=== PATIENT | male | born 1980 | race Caucasian/White ===

== ENCOUNTER 2017-10-19 10:35 | Inpatient (IN) | payer MEDICAID ==
[~2017-10-19] VITALS: Ht 167.6 cm; Wt 76.8 kg
[2017-10-19 11:24] LABS: Hematocrit 44.5 % (41.0-53.0); Hemoglobin 14.8 g/dL (13.5-17.5); Mean Corpuscular Hemoglobin 29.1 pg (28.0-32.0); Mean Corpuscular Hgb Conc. 33.1 g/dL (32.0-36.0); Mean Corpuscular Volume 87.9 fL (80.0-100.0); Platelet Count (auto) 438 10^3/uL (140-450); Red Blood Cells 5.07 10^6/uL (4.5-5.90); Red Cell Distribution Width 13.9 % (11.8-14.3); White Blood Cell 23.4 10^3/uL (4.4-10.8)
[2017-10-19 11:35] LABS: Basophils % (manual) 0 (0.0-2.0); Eosinophils % (manual) 0 (0-7); Metamyelocytes % 0; Myelocytes % 0; Promyelocytes % 0; Reactive Lymphocytes 0
[2017-10-19 11:36] LABS: Blast Cells 0
[2017-10-19 11:46] LABS: Albumin 4.3 g/dL (3.4-5.0); BUN/Creatinine Ratio 17.6; Bilirubin, Total 0.8 mg/dL (0.2-1.0); Calcium 9.6 mg/dL (8.5-10.1)
[2017-10-19 12:41] LABS: Band Neutrophils % (manual) 8; Lymphocytes % (manual) 9 (10.0-50.0); Monocytes % (manual) 1 (0-12)
[2017-10-19] MEDS ORDERED: SODIUM CHLORIDE 0.9% 1,000 ML IV ONE ×2 (13:47)
[2017-10-19] MEDS ORDERED: PROMETHAZINE HCL 25 MG/ML 1ML IV ONE (14:00)
[2017-10-19] MEDS ORDERED: PIPERACILLIN-TAZOB 3.375GM 50 ML IV ONE (15:30)
[2017-10-19 15:57] LABS: Urine Bacteria NONE SEEN /hpf (None Seen); Urine Blood Negative /uL (Negative); Urine Mucus FEW (None Seen); Urine Specific Gravity 1.025 (1.001-1.035); Urine WBC 1 /hpf (0 - 3)
[2017-10-19] MEDS ORDERED: IOHEXOL 300 MG/ML 100ML BOTTLE IJ ONE (16:02)
[2017-10-19] MEDS ORDERED: DEXTROSE (50%) 50ML SYRG IV PRN (18:45)
[2017-10-19] MEDS ORDERED: VANCOMYCIN PER PHARMACY 0 MG IV SCH (18:45)
[2017-10-19] MEDS: SODIUM CHLORIDE 0.9% 1,000 ML IV SCH (18:46)
[2017-10-19 19:30] LABS: INR 0.96 (0.9-1.15); Prothrombin Time 10.5 sec (9.37-12.3)
[2017-10-19] MEDS: VANCOMYCIN 1GM/250ML 250 ML IV SCH (20:18)
[2017-10-19 20:25] VITALS: BP 127/76
[2017-10-19 22:00] VITALS: BP 127/76
[2017-10-19 22:21] LABS: Lactic Acid w/Reflex 2.1 mmol/L (0.4-2.0)
[2017-10-19] MEDS: ASCORBIC ACID 500 MG TAB PO SCH (22:29)
[2017-10-19] MEDS: ACETAMINOPHEN 325 MG TAB PO PRN (22:32)
[2017-10-20] MEDS: PIPERACILLIN-TAZOB 3.375GM 50 ML IV SCH ×4 (00:17→18:35)
[2017-10-20] MEDS: ACCU-CHEK COMFORT CURVE STRIP VI SCH ×4 (00:25→18:36)
[2017-10-20] MEDS ORDERED: FLUT250M2 IN (02:40)
[2017-10-20 05:00] VITALS: BP 117/69
[2017-10-20 05:57] LABS: Basophils # (auto) 0 uL; Basophils % (auto) 0.2 % (0.0-2.0); Eosinophils # (auto) 0 uL; Eosinophils % (auto) 0.2 % (0.0-7.0); Hematocrit 41.3 % (41.0-53.0); Hemoglobin 13.5 g/dL (13.5-17.5); Lymphocytes # (auto) 2.6 uL; Lymphocytes % (auto) 14.6 % (10.0-50.0); Mean Corpuscular Hemoglobin 29.4 pg (28.0-32.0); Mean Corpuscular Hgb Conc. 32.7 g/dL (32.0-36.0); Monocytes # (auto) 0.9 uL; Monocytes % (auto) 5.1 % (0.0-12.0); Neutrophils # (auto) 14.4 uL; Neutrophils % (auto) 79.9 % (37.0-80.0); Platelet Count (auto) 342 10^3/uL (140-450); Red Blood Cells 4.59 10^6/uL (4.5-5.90); Red Cell Distribution Width 14.3 % (11.8-14.3)
[2017-10-20] MEDS: InsuLIN REG 1unit/0.01ml Soln (100units/ml) SC SCH ×4 (06:00→18:00)
[2017-10-20 06:16] LABS: Albumin 3.4 g/dL (3.4-5.0); BUN/Creatinine Ratio 13.6; Bilirubin, Total 1.2 mg/dL (0.2-1.0); Calcium 8.6 mg/dL (8.5-10.1); Potassium 3.9 mmol/L (3.5-5.1); Total Protein 6.7 g/dL (6.4-8.2)
[2017-10-20] MEDS: SODIUM CHLORIDE 0.9% 1,000 ML IV SCH ×3 (06:44→20:07)
[2017-10-20] MEDS: ZINC SULFATE 220 MG CAP PO SCH (08:24)
[2017-10-20] MEDS: VANCOMYCIN 1GM/250ML 250 ML IV SCH ×2 (08:24→20:08)
[2017-10-20] MEDS: MULTIPLE VITAMIN TAB PO SCH (08:25)
[2017-10-20] MEDS: ASCORBIC ACID 500 MG TAB PO SCH ×2 (08:25→20:13)
[2017-10-20 09:00] VITALS: BP 101/70
[2017-10-20] MEDS: MORPHINE SULFATE 4 MG/ML SYR/VIAL IV PRN ×5 (09:06→22:30)
[2017-10-20] MEDS ORDERED: GLYCOPYRROLATE 0.2 MG/ML 1ML VIAL ONE ×2 (09:58→13:54)
[2017-10-20] MEDS ORDERED: NEOSTIGMINE 1 MG/ML INJ (10mg/10ML VIAL) ONE ×2 (09:58→13:54)
[2017-10-20] MEDS ORDERED: PROPOFOL 10 MG/ML 20 ML IV ONE ×2 (09:58→13:12)
[2017-10-20] MEDS ORDERED: fentaNYL CITRATE 100 MCG/2 ML VL ONE ×2 (09:58→13:04)
[2017-10-20] MEDS ORDERED: ROCURONIUM 10MG/ML 10ML VIAL IV ONE (09:58)
[2017-10-20] MEDS ORDERED: MEPERIDINE HCL (50 MG/ML) 1 ML VIAL ONE ×2 (09:58→13:05)
[2017-10-20] MEDS ORDERED: MIDAZOLAM HCL 1MG/1ML-2 ML VIAL ONE ×2 (09:58→13:05)
[2017-10-20] MEDS ORDERED: KETOROLAC TROMETH 60MG/2ML VIAL IM ONE (09:58)
[2017-10-20] MEDS ORDERED: POVIDONE IODINE 10 % TOPICAL OINT 30GM TOP ONE (10:07)
[2017-10-20] MEDS ORDERED: DEXAMETHASONE SOD PHOS 10MG/1ML VIAL INJ ONE (13:12)
[2017-10-20] MEDS ORDERED: ceFAZolin 1GM/50ML 50 ML IV ONE (13:12)
[2017-10-20 13:33] VITALS: BP 117/76
[2017-10-20] MEDS ORDERED: PHENYLEPHRINE HCL 10 MG/ML VL ONE (13:33)
[2017-10-20] MEDS ORDERED: KETOROLAC TROMETH 30 MG/ML 1ML VIAL ONE (13:33)
[2017-10-20] MEDS ORDERED: KETOROLAC TROMETH 30 MG/ML 1ML VIAL IV ONE (14:30)
[2017-10-20] MEDS ORDERED: MIDAZOLAM HCL 1MG/1ML-2 ML VIAL IV PRN (14:30)
[2017-10-20] MEDS ORDERED: LABETALOL HCL 5 MG/ML 4ML SYRINGE IV PRN (14:30)
[2017-10-20] MEDS ORDERED: ONDANSETRON HCL 4 MG/2 ML VIAL IV ONE (14:30)
[2017-10-20] MEDS ORDERED: ePHEDrine SULFATE 50 MG/ML AMP IV PRN (14:30)
[2017-10-20] MEDS ORDERED: MORPHINE SULFATE 4 MG/ML SYR/VIAL IV ONE (16:00)
[2017-10-20 17:00] VITALS: BP 127/81
[2017-10-20] MEDS: ACETAMINOPHEN 325 MG TAB PO PRN (20:14)
[2017-10-20 22:00] VITALS: BP_SYST 129; BP_SYST 136; BP_DIAS 68; BP_DIAS 80
[2017-10-20 23:22] VITALS: BP 146/100
[2017-10-21] MEDS: ACCU-CHEK COMFORT CURVE STRIP VI SCH ×4 (00:01→18:58)
[2017-10-21] MEDS: PIPERACILLIN-TAZOB 3.375GM 50 ML IV SCH ×5 (00:01→23:40)
[2017-10-21] MEDS: ONDANSETRON HCL 4 MG/2 ML VIAL IV PRN ×2 (00:02→20:20)
[2017-10-21] MEDS: MORPHINE SULFATE 4 MG/ML SYR/VIAL IV PRN ×4 (02:57→20:08)
[2017-10-21] MEDS: SODIUM CHLORIDE 0.9% 1,000 ML IV SCH ×3 (04:06→20:46)
[2017-10-21 05:34] VITALS: BP_SYST 113; BP_SYST 139; BP_DIAS 59; BP_DIAS 85
[2017-10-21 05:42] LABS: Basophils # (auto) 0.2 uL; Basophils % (auto) 1.3 % (0.0-2.0); Eosinophils # (auto) 0.1 uL; Eosinophils % (auto) 1.1 % (0.0-7.0); Hematocrit 37.3 % (41.0-53.0); Hemoglobin 12.5 g/dL (13.5-17.5); Lymphocytes # (auto) 3.7 uL; Mean Corpuscular Hemoglobin 30.1 pg (28.0-32.0); Mean Corpuscular Hgb Conc. 33.6 g/dL (32.0-36.0); Mean Corpuscular Volume 89.4 fL (80.0-100.0); Monocytes % (auto) 7.2 % (0.0-12.0); Neutrophils # (auto) 8.3 uL; Neutrophils % (auto) 62.4 % (37.0-80.0); Platelet Count (auto) 325 10^3/uL (140-450); Red Blood Cells 4.17 10^6/uL (4.5-5.90); Red Cell Distribution Width 13.9 % (11.8-14.3); White Blood Cell 13.3 10^3/uL (4.4-10.8)
[2017-10-21] MEDS: InsuLIN REG 1unit/0.01ml Soln (100units/ml) SC SCH ×4 (06:00→18:00)
[2017-10-21 06:06] LABS: Albumin 3.3 g/dL (3.4-5.0); BUN/Creatinine Ratio 9.6; Calcium 8.3 mg/dL (8.5-10.1)
[2017-10-21 06:08] LABS: Bilirubin, Total 1.1 mg/dL (0.2-1.0); Total Protein 6.3 g/dL (6.4-8.2)
[2017-10-21] MEDS: ACETAMINOPHEN 325 MG TAB PO PRN (06:28)
[2017-10-21] MEDS: MULTIPLE VITAMIN TAB PO SCH (08:46)
[2017-10-21] MEDS: ZINC SULFATE 220 MG CAP PO SCH (08:46)
[2017-10-21] MEDS: ASCORBIC ACID 500 MG TAB PO SCH ×2 (08:46→20:09)
[2017-10-21 09:30] VITALS: BP 123/75
[2017-10-21] MEDS ORDERED: DOCUSATE SOD 100 MG CAP PO PRN (12:45)
[2017-10-21 13:00] VITALS: BP 129/70
[2017-10-21 17:18] VITALS: BP 119/75
[2017-10-21] MEDS: LACTULOSE 20Gm/30ML SOLN PO PRN (20:09)
[2017-10-21 22:25] VITALS: BP_SYST 117; BP_SYST 142; BP_DIAS 70; BP_DIAS 71
[2017-10-22] MEDS: ACCU-CHEK COMFORT CURVE STRIP VI SCH ×3 (01:22→12:00)
[2017-10-22] MEDS: MORPHINE SULFATE 4 MG/ML SYR/VIAL IV PRN ×4 (01:29→16:09)
[2017-10-22] MEDS: SODIUM CHLORIDE 0.9% 1,000 ML IV SCH ×2 (04:39→13:26)
[2017-10-22] MEDS: PIPERACILLIN-TAZOB 3.375GM 50 ML IV SCH ×2 (05:21→11:20)
[2017-10-22] MEDS: InsuLIN REG 1unit/0.01ml Soln (100units/ml) SC SCH ×3 (05:22→12:00)
[2017-10-22 05:28] VITALS: BP 128/73
[2017-10-22 06:04] LABS: Basophils # (auto) 0.1 uL; Basophils % (auto) 0.5 % (0.0-2.0); Eosinophils # (auto) 0.2 uL; Eosinophils % (auto) 1.9 % (0.0-7.0); Hematocrit 37.2 % (41.0-53.0); Hemoglobin 12.5 g/dL (13.5-17.5); Lymphocytes # (auto) 3.5 uL; Lymphocytes % (auto) 31.4 % (10.0-50.0); Mean Corpuscular Hemoglobin 29.9 pg (28.0-32.0); Mean Corpuscular Hgb Conc. 33.5 g/dL (32.0-36.0); Mean Corpuscular Volume 89.4 fL (80.0-100.0); Monocytes # (auto) 0.9 uL; Monocytes % (auto) 8.3 % (0.0-12.0); Neutrophils # (auto) 6.5 uL; Neutrophils % (auto) 57.9 % (37.0-80.0); Nucleated Red Blood Cells % 0.1 %; Platelet Count (auto) 343 10^3/uL (140-450); Red Blood Cells 4.16 10^6/uL (4.5-5.90); Red Cell Distribution Width 13.4 % (11.8-14.3); White Blood Cell 11.2 10^3/uL (4.4-10.8)
[2017-10-22 06:09] LABS: Calcium 8.7 mg/dL (8.5-10.1); Potassium 4.1 mmol/L (3.5-5.1)
[2017-10-22 09:00] VITALS: BP 120/70
[2017-10-22] MEDS ORDERED: LACTULOSE 20Gm/30ML SOLN PO PRN (10:15)
[2017-10-22] MEDS: ASCORBIC ACID 500 MG TAB PO SCH (10:52)
[2017-10-22] MEDS: ZINC SULFATE 220 MG CAP PO SCH (10:52)
[2017-10-22] MEDS: MULTIPLE VITAMIN TAB PO SCH (10:52)
[2017-10-22] MEDS: LACTULOSE 20Gm/30ML SOLN PO PRN (10:52)
[2017-10-22 13:00] VITALS: BP 120/74
[2017-10-22 17:18] VITALS: BP 116/72
== END 2017-10-22 18:30 | disposition home or self-care (01) | DRG 710 ==
LOC: ER 10:35 → OVERFLOW 10:36 → CENTRAL 20:25
PROVIDERS: ADMIT Internal Medicine; ATTEND Internal Medicine
PROC: 0DTJ4ZZ Resection of Appendix, Percutaneous Endoscopic Approach (ICD-10-PCS; principal; 2017-10-20 13:00)
DX: A41.9 Sepsis, unspecified organism (principal); E11.65 Type 2 diabetes mellitus with hyperglycemia; K35.80 Unspecified acute appendicitis; F17.200 Nicotine dependence, unspecified, uncomplicated; J45.909 Unspecified asthma, uncomplicated; Z83.3 Family history of diabetes mellitus
CPT/HCPCS: 36415; 71045; 74177; 80048; 80053; 80202; 81001; 82962; 83036; 83605; 85007; 85025; 85027; 85610; 86850; 86900; 86901; 87040; 96361; 96365; 96375; J0690; J1100; J1885; J2250; J2405; J2543; J2704

== ENCOUNTER 2017-11-17 11:38 | Emergency (ER) | payer MEDICAID ==
[~2017-11-17] VITALS: Ht 167.6 cm; Wt 72.6 kg
[~2017-11-17 11:38] MED LIST: FLUT250M2 IN
[2017-11-17 11:52] VITALS: BP 144/93
[2017-11-17] MEDS ORDERED: cefTRIAXone SOD 1,000 MG VL IM ONE (12:30)
[2017-11-17] MEDS ORDERED: LIDOCAINE 1% (LOCAL ANESTH.) PF 5ml SDV ONE ×2 (13:11→13:14)
== END 2017-11-17 13:53 | disposition home or self-care (01) ==
LOC: ER 11:38
DX: Z48.02 Encounter for removal of sutures (principal); Z79.899 Other long term (current) drug therapy; Z90.49 Acquired absence of other specified parts of digestive tract
CPT/HCPCS: 99283; J0696